=== PATIENT | female | born 1970 ===

== ENCOUNTER 2022-02-09 14:36 | Inpatient (IN) ==
[2022-02-09] MEDS ORDERED: NITROGLYCERIN 2% OINT 1 INCH/GM PACK TOP STA (14:58)
[2022-02-09] MEDS ORDERED: ASPIRIN 325 MG TABLET PO STA (14:58)
[2022-02-09] MEDS ORDERED: METOPROLOL TARTRATE 5 MG/5 ML VIAL IV STA (14:58)
[2022-02-09] MEDS ORDERED: ENOXAPARIN 80 MG/0.8 ML SYRINGE SUBCUT STA (14:59)
[2022-02-09] MEDS ORDERED: FUROSEMIDE 40 MG/4 ML VIAL IV STA (15:04)
[2022-02-09 15:26] LABS: INR 1.1; Partial Thromboplastin Time 21.8 SECS (23.8-32.1)
[2022-02-09] MEDS ORDERED: GLUCAGON 1 MG VIAL IM PRN (15:35)
[2022-02-09] MEDS ORDERED: DEXTROSE 10% 250 ML BAG IV PRN (15:35)
[2022-02-09] MEDS ORDERED: ONDANSETRON 4 MG/2 ML VIAL IV PRN (15:46)
[2022-02-09] MEDS ORDERED: MAGNESIUM SULF RIDER 2 GM/50 ML PREMIX IV PRN (15:52)
[2022-02-09] MEDS ORDERED: MAGNESIUM SULF RIDER 4 GM/100 ML PREMIX IV PRN (15:52)
[2022-02-09 16:45] LABS: Risk Ratio 3.82; VLDL Cholesterol 21.2 MG/DL
[2022-02-09] MEDS: NITROGLYCERIN 2% OINT 1 INCH/GM PACK TOP SCH (20:42)
[2022-02-10] MEDS: NITROGLYCERIN 2% OINT 1 INCH/GM PACK TOP SCH ×3 (03:59→16:46)
[2022-02-10 07:53] LABS: Basophils % 0.4 % (0.0-0.8); Eosinophils # 0.1 10*3/uL (0.0-0.87); Eosinophils % 1.4 % (0.00-10.9); Hematocrit 40.9 VOL% (35.7-47.0); Hemoglobin 13.3 GM/DL (12.0-16.0); Immature Granulocytes % 0.4 %; Immature Granulocytes Absolute 0.04 #; Lymphocytes # 1.3 10*3/uL (1.4-4.0); Mean Corpuscular HGB Conc 32.5 GM/DL (32-36); Mean Corpuscular Volume 93.6 FL (87-102); Mean Platelet Volume 12.6 FL (9.6-12.0); Monocytes # 0.8 10*3/uL (0.11-0.8); Monocytes % 7.8 % (1.7-12.7); Platelet Count 139 T/CUMM (130-400); Red Blood Count 4.37 MC/CUMM (3.8-5.5); Red Cell Distribution Width 14.7 % (9.3-17.3); White Blood Count 10.3 T/CUMM (4-12)
[2022-02-10 08:08] LABS: Calcium 8.1 MG/DL (8.5-10.1); Osmolality,Calculated 284.1 MOS/KG (273-304); Potassium 3.8 MMOL/L (3.5-5.1)
[2022-02-10] MEDS: FUROSEMIDE 40 MG/4 ML VIAL IV SCH ×2 (09:05→16:46)
[2022-02-10] MEDS ORDERED: hydrALAZINE 20 MG/1 ML VIAL IV PRN (11:08)
[2022-02-10] MEDS ORDERED: NITROGLYCERIN SL 0.4 MG TABLET SL PRN (11:13)
[2022-02-10] MEDS: DAPAGLIFLOZIN 10 MG TABLET PO SCH (11:19)
[2022-02-10] MEDS: carvediloL 6.25 MG TABLET PO SCH ×2 (11:19→16:46)
[2022-02-10] MEDS: ASPIRIN EC 81 MG TABLET PO SCH (11:19)
[2022-02-10] MEDS: SACUBITRIL/VALSARTAN 49-51 MG TABLET PO SCH ×2 (11:19→20:28)
[2022-02-10] MEDS ORDERED: DIAZEPAM 5 MG TABLET PO ONE (11:43)
[2022-02-10] MEDS ORDERED: diphenhydrAMINE CAP 50 MG CAPSULE PO ONE (11:43)
[2022-02-10] MEDS ORDERED: HEPARIN/NACL 0.9% 2 UNITS/ML 2,000 UNIT/1,000 ML BAG IV ONE (12:29)
[2022-02-10] MEDS ORDERED: HYDROmorphone 1 MG/1 ML SYRINGE ONE (12:53)
[2022-02-10] MEDS ORDERED: MIDAZOLAM 2 MG/2 ML VIAL ONE (12:53)
[2022-02-10] MEDS ORDERED: ENOXAPARIN 40 MG/0.4 ML SYRINGE SUBCUT SCH (21:00)
[2022-02-11 06:53] LABS: Basophils % 0.3 % (0.0-0.8); Eosinophils # 0.2 10*3/uL (0.0-0.87); Eosinophils % 1.5 % (0.00-10.9); Hematocrit 47.1 VOL% (35.7-47.0); Hemoglobin 15.2 GM/DL (12.0-16.0); Immature Granulocytes % 0.5 %; Immature Granulocytes Absolute 0.05 #; Lymphocytes # 1.6 10*3/uL (1.4-4.0); Lymphocytes % 15.5 % (21.3-54.2); Mean Corpuscular HGB Conc 32.3 GM/DL (32-36); Mean Corpuscular Volume 93.8 FL (87-102); Mean Platelet Volume 13.2 FL (9.6-12.0); Monocytes # 0.9 10*3/uL (0.11-0.8); Monocytes % 9.1 % (1.7-12.7); Neutrophils % 73.1 % (38.7-73.9); Platelet Count 146 T/CUMM (130-400); Red Blood Count 5.02 MC/CUMM (3.8-5.5); Red Cell Distribution Width 14.5 % (9.3-17.3); White Blood Count 10.2 T/CUMM (4-12)
[2022-02-11 07:17] LABS: Calcium 8.1 MG/DL (8.5-10.1); Osmolality,Calculated 272.7 MOS/KG (273-304); Potassium 3.2 MMOL/L (3.5-5.1)
[2022-02-11 07:42] LABS: Anisocytosis Slight; Macrocytosis Slight; Platelet Estimate Adequate
[2022-02-11 08:09] VITALS: BP 154/82
[2022-02-11] MEDS ORDERED: POTASSIUM CHLORIDE 20 MEQ TABLET PO ONE (08:29)
[2022-02-11] MEDS: DAPAGLIFLOZIN 10 MG TABLET PO SCH (08:47)
[2022-02-11] MEDS: carvediloL 6.25 MG TABLET PO SCH (08:48)
[2022-02-11] MEDS: FUROSEMIDE 40 MG/4 ML VIAL IV SCH (08:48)
[2022-02-11] MEDS: ASPIRIN EC 81 MG TABLET PO SCH (08:48)
[2022-02-11] MEDS: SACUBITRIL/VALSARTAN 49-51 MG TABLET PO SCH (08:54)
[2022-02-11] MEDS ORDERED: carvediloL 12.5 MG TABLET PO SCH (09:00)
[2022-02-11] MEDS ORDERED: FUROSEMIDE 40 MG TABLET PO SCH (16:00)
== END 2022-02-11 11:06 | disposition home or self-care (01) | DRG 286 ==
LOC: EDUNIT# → EDBD → N.ED 14:36 → N.EDINP 14:36 → SUATTDRO 15:35 → OBSVTOIN 15:35 → N.EDINP 17:54 → N.TELES 18:30
PROVIDERS: ADMIT Internal Medicine; ATTEND Internal Medicine